=== PATIENT | female | born 1960 | race Caucasian/White ===

== ENCOUNTER 2017-03-22 06:34 | Day surgery (SDC) | payer BC ==
[2017-03-21 19:52] VITALS: BMI 24.2
[2017-03-22] MEDS ORDERED: MIDAZOLAM HCL 2 MG/2 ML SINGLE DOSE VIAL ONE (07:43)
[2017-03-22] MEDS ORDERED: PROPOFOL 20 ML ONE ×4 (07:43→08:54)
[2017-03-22] MEDS ORDERED: SUCCINYLCHOLINE CHLORIDE 200 MG/10 ML VIAL ONE (07:45)
[2017-03-22] MEDS ORDERED: DESFLURANE GAS 240 ML BOTTLE IH ONE (07:50)
[2017-03-22] MEDS ORDERED: SEVOFLURANE 250 ML BTL ONE (07:50)
[2017-03-22] MEDS ORDERED: BUPIVACAINE HCL/PF 0.5% (5MG/ML) 10 ML VIAL ONE (08:01)
[2017-03-22] MEDS ORDERED: LIDOCAINE HCL 1%, 10 MG/ML (20ML VIAL) ONE (08:01)
--- NOTE | 2017-03-22 08:28 | HP ---
[facility] - Chief Complaint Chief Complaint: right index finger pain History of Present Illness: right index trigger finger History Source: Patient Limitations to Obtaining History: No Limitations - Past Medical History Allergies/Adverse Reactions: Allergies Allergy/AdvReac Type Severity Reaction Status Date / Time No Known Allergies Allergy Verified 03/21/17 19:44 - Current Medications Current Medications: Home Medications Medication Instructions Recorded NK [No Known Home Medication] 03/21/17 Satellite Physical Exam - Physical Examination Vital Signs: Vital Signs Period Temp Pulse Resp BP Sys/Cunningham Pulse Ox Last 24 Hr 97.6 F-97.6 F 63-63 20-20 98-98/57-57 100 General Appearance: Well Nourished ENT: Clear Lung: Clear to auscultation Heart: Regular rate & rhythm Breasts: Soft Abdomen: Soft Extremities: No edema Satellite Impression/Plan - Impression/Plan Impression: right index trigger finger Operative Procedure: right index finger trigger finger release Date to be Performed: 03/22/17
[2017-03-22] MEDS ORDERED: ceFAZolin SODIUM 1 GM VIAL IVPB ONE (08:35)
[2017-03-22] MEDS ORDERED: BUPIVACAINE HCL/PF 0.5% (5MG/ML) 10 ML VIAL IJ ONE (08:41)
[2017-03-22] MEDS ORDERED: LIDOCAINE HCL 1%, 10 MG/ML (20ML VIAL) IJ ONE (08:41)
[2017-03-22] MEDS ORDERED: ePHEDrine SULFATE 50 MG/1 ML AMPULE ONE (08:59)
--- NOTE | 2017-03-22 09:01 | OP ---
Operative Note - Note: Operative Date: 03/22/17 Pre-Operative Diagnosis: right index trigger finger Operation: right index trigger finger release, tendon sheath excision Post-Operative Diagnosis: Same as Pre-op Surgeon: Domingo Tim Anesthesiologist/BRIDGE PAINTER HELPER: Radha Vasques Anesthesia: General, Local Specimens Removed: tendon sheath Estimated Blood Loss (mls): 0 Drains, Volume Out (mls): 0 Blood Volume Replaced (mls): 0 Fluid Volume Replaced (mls): 500 Operative Report Dictated: Yes
[2017-03-22] MEDS ORDERED: ONDANSETRON 4 MG/2 ML VIAL IVPUSH PRN (09:07)
[2017-03-22] MEDS ORDERED: LACTATED RINGERS SOLUTION 1,000 ML IV SCH (09:15)
[2017-03-22 10:44] VITALS: TEMP 97.7
[2017-03-22 12:37] VITALS: BP 99/63; PULSE 72
--- NOTE | 2017-03-23 09:26 | SPEC ---
DATE OF OPERATION: 03/22/2017 PREOPERATIVE DIAGNOSIS: Right index finger trigger finger. POSTOPERATIVE DIAGNOSIS: Right index finger trigger finger. PROCEDURE: Right index finger trigger finger release and tendon sheath excision. SURGEON: Marcos Rich MD ASSISTANTS: None. ANESTHESIOLOGIST: Dr. Vasques ANESTHESIA: MAC anesthesia, local injection of 8 mL 0.50% Marcaine and 1% lidocaine mix. DRAINS: None. COMPLICATIONS: None. SPECIMEN: Tendon sheath, right index finger. BLOOD LOSS: None. BLOOD GIVEN: None. FLUID REPLACEMENT: 500 mL INDICATIONS: This patient is a 56-year-old female with a preoperative diagnosis of a recurrent, painful right index finger trigger finger. After understanding the potential risks, complications, alternatives, and benefits of surgery versus nonsurgical treatment, the patient elected to undergo this procedure. DESCRIPTION OF PROCEDURE: The patient was brought to the operating room, IV was placed, IV sedation was given. One gram of intravenous Ancef given. A tourniquet was applied to the right upper arm and the right upper extremity was prepped and draped in sterile fashion. The entire case was done under 3.8 loupe magnification. A marking pen was utilized to gayathri out a longitudinal incision in an already existing skin crease at the base of the right index finger. Then 10 mL of 0.5% Marcaine mixed with 1% Lidocaine was injected in and around the incision. The right upper extremity was elevated, exsanguinated with an Esmarch bandage and the tourniquet inflated to 250 mmHg. A No. 15 scalpel blade was utilized to cut down through the skin. Subcutaneous hemostasis was achieved with the bipolar cautery. Additional dissection was done with Littler scissors until I was able to directly visualize the A1 linh sheath in its entirety. Self-retaining retractors were placed into the wound. A free air elevator was used to free up the tissue on the radial side, the ulnar side distally and proximally under better visualization of A1 linh sheath. Next, using a fresh No. 15 scalpel blade, I excised the central one-third of the A1 linh sheath and passed it off the field as specimen, tendon sheath, index finger. I then completed the release, both distally and proximally, and brought the FDS and FDP tendons out through the wound with a Ragnell retractor. There were no abnormal points of compression. I was able to move the index finger without the tendons bunching up at all. The area was then copiously irrigated and washed out. I then checked one more time to make sure there were no abnormal points of compression. None were seen and therefore closure was begun. One stitch using 4-0 Vicryl was used in the deep dermal layer. Skin was reapproximated with 4-0 Nylon sutures in a horizontal mattress fashion. The area was then washed and dried, covered with Xeroform gauze, sterile 4x4s, fluffs between the fingers, Webril and Coban. The tourniquet was taken down after a total tourniquet time of 14 minutes. There were no complications during the case. The patient tolerated the procedure well and was brought to the Ambulatory recovery Room in stable condition. MARCOS RICH M.D. [id number]
--- NOTE | 2017-03-23 15:22 | PATH ---
Surgical Pathology Report Patient Name: RENATA FELIPE [facility]. Rec. #: [id number] /Age/Gender: 1960 (Age: 56) / F Account: [id number] Location: [facility] SURGICAL Taken: 03/22/2017 Received: 03/22/2017 Reported: 03/23/2017 Physicians: Domingo Tim M.D. Specimen(s) Received TENDON SHEATH RIGHT INDEX TRIGGER FINGER Clinical History Right index trigger finger Final Diagnosis SOFT TISSUE, RIGHT INDEX FINGER, TRIGGER FINGER RELEASE: BENIGN FIBROCARTILAGINOUS TISSUE WITH FOCAL DEGENERATIVE CHANGES. Electronically Signed Ammon De León M.D. Gross Description Received in formalin labeled "tendon sheath right index trigger finger," is a 0.8 cm in greatest dimension navarro fragment of fibrous tissue. The specimen is submitted in toto in one cassette. 03/22/201703/22/2017
== END 2017-03-22 12:25 | disposition home or self-care (01) ==
LOC: JASU-SURG 06:34
PROVIDERS: ATTEND Orthopaedic Surgery
PROC: 0LN70ZZ Release Right Hand Tendon, Open Approach (ICD-10-PCS; principal; 2017-03-22 08:00)
DX: M65.321 Trigger finger, right index finger (principal)
CPT/HCPCS: 88304-TC; 94760

== ENCOUNTER 2019-02-23 23:43 | Emergency (ER) | payer BC ==
[2019-02-24 00:03] VITALS: BP 117/73; PULSE 93; TEMP 98.8; BMI 25.0
--- NOTE | 2019-02-24 01:03 | PDOC ---
Attending Attestation - Resident Resident Name: YinaShabbir - ED Attending Attestation I have performed the following: I have examined & evaluated the patient, The case was reviewed & discussed with the resident, I agree w/resident's findings & plan - HPI HPI: 02/24/19 02:07 Pt comes with cough and cold. 02/24/19 03:56 Took a zpak, and she continues to cough for the past month. She has no fevers and no chills. She has no hx of asthma and she is not a smoker. She has no allergies that are known. - Physicial Exam PE: 02/24/19 03:56 Agree with resident exam. Pt has persistent dry cough. She has no wheeze. She will be treated with decadron and a dose of benadryl. She has no post nasal drip or congestion and she has no sinusitis. - Medical Decision Making 02/24/19 03:57 CXR normal; she has cardiomegaly. EKG has flipped T waves, but we have none for comparison; pt has no CP; she has a hx of mitral valve regurgitation. 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 Heart Score/ECG Review - ECG Intrepretation Rhythm: Regular Rhythm - [place]: Right [place] Deviation - P and MA Atrial Enlargement: Right Prominent R with upright T in V1 (true posterior AR): No - ST and T Early Repolarization: No Non Specific ST-T Wave changes: No - ECG Impressions Non-specific ST Elevation: No Ischemic Changes: Yes (flipped T's anteriorly) Tachycardia: Sinus (Pt has a viral URI)
--- NOTE | 2019-02-24 01:49 | PDOC ---
History of Present Illness <Franci Johns - Last Filed: 02/24/19 02:03> - History of Present Illness Initial Comments: 02/24/19 02:57 58F with pmh of mitral valve regurgitation presents to the ED for persistent coughing for the past month. The cough is non productive and worse at night. She saw her primary care provider 3 weeks ago who prescribed her with Z-pack which didn't improve her symptoms. Tested negative for the flu as well. Patient tried taking mucinex syrup which also didn't help much. Denies fever, chills, chest pain, sob, dysuria, abdominal pain, n/v/d. <Shabbir Bran - Last Filed: 02/24/19 03:20> - General Chief Complaint: Cold Symptoms Stated Complaint: CHEST PAIN/COUGH Time Seen by Provider: 02/24/19 00:39 Past History <Franci Johns - Last Filed: 02/24/19 02:03> - Past Medical History Anemia: No Asthma: No Cancer: No Cardiac Disorders: Yes (MVP) CVA: No COPD: No CHF: No Dementia: No Diabetes: No GI Disorders: Yes (acid reflux) Disorders: No HTN: No Hypercholesterolemia: No Liver Disease: No Seizures: No Thyroid Disease: No - Surgical History Appendectomy: Yes Orthopedic Surgery: Yes (r wrist surgery) - Suicide/Smoking/Psychosocial Hx Smoking History: Never smoked Hx Alcohol Use: Yes (social) Substance Use Type: None Hx Substance Use Treatment: No <YinaShabbir - Last Filed: 02/24/19 03:20> - Past Medical History Allergies/Adverse Reactions: Allergies Allergy/AdvReac Type Severity Reaction Status Date / Time No Known Allergies Allergy Verified 02/24/19 00:03 Home Medications: Ambulatory Orders Hydrocodone/Acetaminophen [Vicodin 5-300 mg Tablet] 1 - 2 tab PO TID PRN #40 tablet MDD 6 03/22/17 Review of Systems - Review of Systems Able to Perform ROS?: Yes Is the patient limited Indonesian proficient: No Constitutional: No: Symptoms Reported HEENTM: No: Symptoms Reported Respiratory: Yes: See HPI Cardiac (ROS): No: Symptoms Reported ABD/GI: No: Symptoms Reported : No: Symptoms Reported Musculoskeletal: No: Symptoms Reported Integumentary: No: Symptoms Reported Neurological: No: Symptoms reported All Other Systems: Reviewed and Negative <Shabbir Bran Last Filed: 02/24/19 03:20> *Physical Exam - Vital Signs Last Vital Signs Temp Pulse Resp BP Pulse Ox 98.8 F 93 H 18 117/73 100 02/24/19 00:01 02/24/19 00:01 02/24/19 00:01 02/24/19 00:01 02/24/19 00:01 <Franci Johns - Last Filed: 02/24/19 02:03> - Vital Signs Last Vital Signs Temp Pulse Resp BP Pulse Ox 98.8 F 93 H 18 117/73 100 02/24/19 00:01 02/24/19 00:01 02/24/19 00:01 02/24/19 00:01 02/24/19 00:01 - Physical Exam General Appearance: Yes: Nourished, Appropriately Dressed. No: Apparent Distress HEENT: positive: EOMI, ZAHRA, Normal ENT Inspection Respiratory/Chest: positive: Lungs Clear, Normal Breath Sounds. negative: Chest Tender, Respiratory Distress Cardiovascular: positive: Regular Rhythm, Regular Rate, S1, S2 Gastrointestinal/Abdominal: positive: Normal Bowel Sounds, Flat, Soft. negative : Tender Musculoskeletal: positive: Normal Inspection. negative: CVA Tenderness Extremity: positive: Normal Capillary Refill, Normal Inspection, Normal Range of Motion Integumentary: positive: Normal Color, Dry, Warm Neurologic: positive: Fully Oriented, Alert, Normal Mood/Affect, Normal Response , Motor Strength 5/5 <Shabbir Bran Last Filed: 02/24/19 03:20> ED Treatment Course - RADIOLOGY Radiology Studies Ordered: Category Date Time Status CHEST PA & LAT [RAD] Stat Radiology 02/24/19 00:40 Taken <Franci Johns - Last Filed: 02/24/19 02:03> Medical Decision Making - Medical Decision Making 02/24/19 03:16 58F with complaint of cough for the past month. This is likely a viral bronchitis due to no pmh of asthma, no fever, non- productive cough. Negative cxr. Patient was slightly tachycardic so EKG was ordered and revealed Sinus tach with 1st degree AV block. Right ventricular hypertrophy with rep[olarization abnormality. Patient ok to follow up with primary care physician and take dextrometorphan for her cough. <Shabbir Bran Filed: 02/24/19 03:20> *DC/Admit/Observation/Transfer <Franci Johns - Last Filed: 02/24/19 02:03> - Discharge Dispostion Decision to Admit order: No <Shabbir Bran - Last Filed: 02/24/19 03:20> Diagnosis at time of Disposition: Viral bronchitis - Discharge Dispostion Disposition: HOME Condition at time of disposition: Improved - Referrals Referrals: Ammon Manriquez MD, MD [Staff Physician] - - Patient Instructions Printed Discharge Instructions: How to Avoid a Cold or Flu, DI for Acute Bronchitis, DI for Viral Upper Respiratory Infection -- Adult Additional Instructions: Come back to the emergency department for any new, worsening or concerning symptom. Follow up with your primary care provider within the week. Take any dextrometorphan syrup for your cough.
[2019-02-24] MEDS ORDERED: DEXAMETHASONE LIQUID 0.5 MG/5 ML 240 ML BULK BOTTLE PO ONE (01:55)
[2019-02-24] MEDS ORDERED: diphenhydrAMINE HCL 25 MG CAPSULE (FP) PO ONE ×2 (01:55→02:01)
[2019-02-24] MEDS ORDERED: DEXAMETHASONE SOD PHOSPHATE 10 MG/1 ML VIAL ONE (02:01)
--- NOTE | 2019-02-24 13:05 | EKG ---
Test Reason : Blood Pressure : / mmHG Vent. Rate : 101 BPM Atrial Rate : 101 BPM P-R Int : 210 ms QRS Dur : 092 ms QT Int : 344 ms P-R-T Axes : 064 111 054 degrees QTc Int : 446 ms SINUS TACHYCARDIA WITH 1ST DEGREE A-V BLOCK RIGHT VENTRICULAR HYPERTROPHY WITH REPOLARIZATION ABNORMALITY LATERAL INFARCT (CITED ON OR BEFORE 01-FEB-2006) NONSPECIFIC T WAVE ABNORMALITY ABNORMAL ECG Confirmed by LEDY CLAUDIO MD ([id number]) on 02/24/2019 1:05:10 PM Referred By: Confirmed By:LEDY CLAUDIO MD
== END 2019-02-24 02:38 | disposition home or self-care (01) ==
LOC: JER 23:43
DX: J40 Bronchitis, not specified as acute or chronic (principal); B97.89 Other viral agents as the cause of diseases classified elsewhere; I34.0 Nonrheumatic mitral (valve) insufficiency
CPT/HCPCS: 71046-TC-FY; 93005; 93010; 99281-25